=== PATIENT | male | born 1980 | race Hispanic/Latino ===

== ENCOUNTER 2021-03-27 08:47 | Emergency (ER) | payer SELFPAY ==
--- NOTE | 2021-03-27 10:14 | EDPHYS ---
Physician Documentation [facility] Name: Amor Jurado Age: 40 yrs Sex: Male : 1980 Arrival Date: 03/27/2021 Time: 08:51 Bed DIS2 Private MD: ED Physician Zachery De Jesus HPI: 03/27 09:05 This 40 yrs old Male presents to ER via Unassigned with complaints of COVID+, kb Breathing Difficulty. 09:05 The patient or guardian reports cough, difficulty breathing. Onset: The kb symptoms/episode began/occurred last week, and became worse last night. Severity of symptoms: At their worst the symptoms were mild, moderate, in the emergency department the symptoms are unchanged. Modifying factors: The symptoms are alleviated by nothing, the symptoms are aggravated by nothing. Associated signs and symptoms: The patient has no apparent associated signs or symptoms. The patient has not experienced similar symptoms in the past. The patient has been recently seen by a physician:. Patient reports he was diagnosed with Covid last week. Reports shortness of breath got worse last night and continued this morning.. Historical: - Allergies: 09:05 No Known Allergies; ss - Home Meds: 09:05 None [Active]; ss - PMHx: 09:05 None; ss - PSHx: 09:05 None; ss - Immunization history:: Client reports having NOT received the Covid vaccine. - Social history:: Smoking status: Patient denies any tobacco usage or history of. ROS: 09:05 Constitutional: Negative for fever, chills, and weight loss. kb 09:05 Respiratory: Positive for cough, shortness of breath. 09:05 All other systems are negative. Exam: 09:05 Constitutional: This is a well developed, well nourished patient who is awake, alert, kb and in no acute distress. Head/Face: Normocephalic, atraumatic. ENT: Moist Mucous membranes Cardiovascular: Regular rate and rhythm with a normal S1 and S2. No gallops, murmurs, or rubs. No pulse deficits. Respiratory: Respirations even and unlabored. No increased work of breathing, no retractions or nasal flaring. Skin: Warm, dry with normal turgor. Normal color. MS/ Extremity: Pulses equal, no cyanosis. Neurovascular intact. Full, normal range of motion. Neuro: Awake and alert, GCS 15, oriented to person, place, time, and situation. Moves all extremities. Normal gait. Psych: Awake, alert, with orientation to person, place and time. Behavior, mood, and affect are within normal limits. Vital Signs: 09:04 BP 126 / 85; Pulse 105; Resp 22; Temp 97.9(TE); Pulse Ox 98% on R/A; Weight 86.18 kg; ss MDM: 08:53 Patient medically screened. kb 09:06 Data reviewed: vital signs, nurses notes. Data interpreted: Pulse oximetry: on room air kb is 98 %. Interpretation: normal. ED course: Patient's O2 maintained 96 to 98% on room air.. 10:13 Counseling: I had a detailed discussion with the patient and/or guardian regarding: the kb historical points, exam findings, and any diagnostic results supporting the discharge/admit diagnosis, radiology results, the need for outpatient follow up, a family practitioner, to return to the emergency department if symptoms worsen or persist or if there are any questions or concerns that arise at home. 03/27 09:00 Order name: Chest Pa And Lat (2 Views) XRAY; Complete Time: 10:27 kb Administered Medications: 10:34 Drug: SOLU-Medrol (methylPREDNISolone sodium succinate) 125 mg Route: IM; Site: left ss deltoid; 10:45 Follow up: Response: No adverse reaction; Medication administered at discharge. Disposition: 10:46 Co-signature as Attending Physician, Zachery De Jesus MD I agree with the assessment and rn plan of care. Attestation: The patient's history, exam findings, diagnostics, and a summary of any interventions or procedures was reviewed in detail with Gladys MOLINA. Disposition Summary: 03/27/21 10:14 Discharge Ordered Location: Home kb Condition: Stable kb Diagnosis - Coronavirus infection, unspecified kb - Viral pneumonia, unspecified kb Followup: kb - With: Emergency Department - When: As needed - Reason: Worsening of condition Followup: kb - With: Private Physician - When: 2 - 3 days - Reason: Recheck today's complaints, Continuance of care, Re-evaluation by your physician Discharge Instructions: - Discharge Summary Sheet kb - Viral Respiratory Infection, Upec-Iz-Niej kb - COVID-19 kb Forms: - Medication Reconciliation Form kb - Thank You Letter kb - Antibiotic Education kb - Prescription Opioid Use kb Prescriptions: - Prednisone 20 mg Oral Tablet - take 1 tablet by ORAL route once daily for 5 days; 5 tablet; Refills: 0, kb Product Selection Permitted Signatures: Dispatcher [employer] Gladys Ceron, Zachery Duffy MD MD rn Lalita Ryan RN RN ss
--- NOTE | 2021-03-27 10:14 | ER ---
Nurse's Notes [facility] Name: Amor Jurado Age: 40 yrs Sex: Male : 1980 Arrival Date: 03/27/2021 Time: 08:51 Bed DIS2 Private MD: Diagnosis: Coronavirus infection, unspecified;Viral pneumonia, unspecified Presentation: 03/27 09:04 Chief complaint: Patient states: SOB since last night. Tested + for covid last week. ss Coronavirus screen: Client denies travel out of the [place] in the last 14 days. Ebola Screen: Patient denies exposure to infectious person. Patient denies travel to an Ebola-affected area in the 21 days before illness onset. Initial Sepsis Screen: Does the patient meet any 2 criteria? No. Patient's initial sepsis screen is negative. Does the patient have a suspected source of infection? No. Patient's initial sepsis screen is negative. Risk Assessment: Do you want to hurt yourself or someone else? Patient reports no desire to harm self or others. Onset of symptoms was March 26, 2021. 09:04 Method Of Arrival: Ambulatory ss 09:04 Acuity: MOHAMUD 3 ss Historical: - Allergies: 09:05 No Known Allergies; ss - Home Meds: 09:05 None [Active]; ss - PMHx: 09:05 None; ss - PSHx: 09:05 None; ss - Immunization history:: Client reports having NOT received the Covid vaccine. - Social history:: Smoking status: Patient denies any tobacco usage or history of. Vital Signs: 09:04 BP 126 / 85; Pulse 105; Resp 22; Temp 97.9(TE); Pulse Ox 98% on R/A; Weight 86.18 kg; ss ED Course: 08:51 Patient arrived in ED. mr 08:53 Gladys Franklin FNP-C is PHCP. kb 08:53 Zachery De Jesus MD is Attending Physician. kb 09:05 Triage completed. ss 09:05 Arm band placed on right wrist. ss 09:15 Chest Pa And Lat (2 Views) XRAY In Process Unspecified. EDMS 10:17 Lalita Ryan, CONOR is Primary Nurse. ss 10:34 No provider procedures requiring assistance completed. Patient did not have IV access ss during this emergency room visit. Administered Medications: 10:34 Drug: SOLU-Medrol (methylPREDNISolone sodium succinate) 125 mg Route: IM; Site: left ss deltoid; 10:45 Follow up: Response: No adverse reaction; Medication administered at discharge. ss Outcome: 10:14 Discharge ordered by . kb 10:34 Discharged to home ambulatory. ss 10:34 Condition: good 10:34 Discharge instructions given to patient, Instructed on discharge instructions, follow up and referral plans. medication usage, Demonstrated understanding of instructions, follow-up care, Prescriptions given X 1. 10:45 Patient left the ED. ss Signatures: Dispatcher [employer] EDMS Gladys Franklin, [employer]-Loida Morley Shelby, RN RN ss
--- NOTE | 2021-03-27 10:23 | RAD REPORT ---
EXAM DESCRIPTION: RADAmarist Pa And Lat (2 Views)03/27/2021 9:15 am CLINICAL HISTORY: cough COMPARISON: None FINDINGS: Mild bilateral pulmonary opacities are present. The heart is normal size IMPRESSION: Mild bilateral pulmonary opacities probably pneumonia
[2021-03-27] MEDS ORDERED: METHYLPREDNISOLONE 125 MG INJ ONE (10:50)
[2021-03-27 10:52] VITALS: BP 126/85; TEMP 97.9; O2SAT 98
== END 2021-03-27 10:45 | disposition home or self-care (01) ==
LOC: ER 08:47
DX: U07.1 COVID-19 (principal); J12.9 Viral pneumonia, unspecified
CPT/HCPCS: 71046; 96372; 99283; J2930

== ENCOUNTER 2021-03-30 01:17 | Inpatient (IN) | payer SELFPAY ==
[2021-03-30] MEDS ORDERED: METHYLPREDNISOLONE 125 MG INJ ONE (02:09)
[2021-03-30] MEDS ORDERED: NA CHLORIDE 0.9% 1,000 ML ONE (02:09)
[2021-03-30 02:47] LABS: Basophils % 0.2 % (0-1.3); Hematocrit 42.9 % (39.6-49.0); Lymphocytes % 8.2 % (15.3-44.8); MPV 8.2 fL (7.6-11.3); RBC Red Blood Cell Count 5.07 M/uL (4.33-5.43)
[2021-03-30 03:01] LABS: ALT/SGPT 99 U/L (12-78); AST/SGOT 36 U/L (15-37); Albumin 3.2 g/dL (3.4-5.0); Alkaline Phosphatase 94 U/L (45-117); BUN Blood Urea Nitrogen 13 mg/dL (7-18); Bicarbonate 23 mmol/L (21-32); Bilirubin Direct 0.1 mg/dL (0-0.2); Bilirubin Total 0.5 mg/dL (0.2-1.0); Ferritin 1178.6 ng/mL (26-388); Glucose Level 153 mg/dL (74-106); Protein, Total 7.4 g/dL (6.4-8.2); Sodium Level 141 mmol/L (136-145); Troponin (Emerg Dept Use Only) < 0.02 ng/mL (0.0-0.045)
--- NOTE | 2021-03-30 03:17 | ER ---
Nurse's Notes [facility] Name: Amor Jurado Age: 40 yrs Sex: Male : 1980 Arrival Date: 03/30/2021 Time: 01:20 Bed 19 Private MD: Diagnosis: Pneumonia due to SARS-associated coronavirus;Hypoxemia;Fever, unspecified Presentation: 03/30 01:30 Chief complaint: Patient states: was here 2 days ago from the same thing, reports em difficulty breathing and having shortness of breath, had tested covid positive 03/13. Coronavirus screen: Client denies travel out of the [place] in the last 14 days. Ebola Screen: Patient negative for fever greater than or equal to 101.5 degrees Fahrenheit, and additional compatible Ebola Virus Disease symptoms Patient denies exposure to infectious person. Patient denies travel to an Ebola-affected area in the 21 days before illness onset. No symptoms or risks identified at this time. Initial Sepsis Screen: Does the patient meet any 2 criteria? HR > 90 bpm. No. Patient's initial sepsis screen is negative. Does the patient have a suspected source of infection? No. Patient's initial sepsis screen is negative. If YES to both, name of provider notified: Zachery De Jesus MD. Risk Assessment: Do you want to hurt yourself or someone else? Patient reports no desire to harm self or others. Onset of symptoms was March 30, 2021. 01:30 Method Of Arrival: Wheelchair em 01:30 Acuity: MOHAMUD 2 em Triage Assessment: 02:18 General: Appears distressed, uncomfortable, Behavior is. Pain: Complains of pain in sh9 chest Pain currently is 3 out of 10 on a pain scale. 02:23 Respiratory: Reports shortness of breath at rest on exertion Onset: The sh9 symptoms/episode began/occurred yesterday, Historical: - Allergies: 01:31 No Known Allergies; em - PMHx: 01:31 None; em - PSHx: 01:31 None; em - Immunization history:: Client reports having NOT received the Covid vaccine. - Social history:: Smoking status: Patient denies any tobacco usage or history of. - Family history:: not pertinent. - Hospitalizations: : No recent hospitalization is reported. Screenin:22 Abuse screen: Denies threats or abuse. Denies injuries from another. Nutritional sh9 screening: No deficits noted. Tuberculosis screening: No symptoms or risk factors identified. Fall Risk None identified. Assessment: 02:21 Cardiovascular: Rhythm is sinus tachycardia. Respiratory: Reports shortness of breath sh9 at rest on exertion cough that is non-productive, hacking, labored breathing since yesterday pain with cough Airway is patent Respiratory effort is labored, GI: No deficits noted. : No deficits noted. EENT: No deficits noted. Derm: No deficits noted. Musculoskeletal: No deficits noted. Vital Signs: 01:30 BP 120 / 106; Pulse 133; Resp 36; Temp 98.1; Pulse Ox 73% on R/A; em 02:19 BP 118 / 72; Pulse 120; Resp 24; Temp 101.7; Pulse Ox 98% on 5 lpm NC; Pain 3/10; sh9 04:29 BP 118 / 71; Pulse 76; Resp 34; Pulse Ox 100% on 5 lpm NC; sh9 21:31 BP 125 / 77; Pulse 65; Resp 18; Pulse Ox 97% on 15% Non-rebreather mask; sh9 ED Course: 01:20 Patient arrived in ED. bp1 01:31 Triage completed. em 01:31 Arm band placed on. em 01:33 Zachery De Jesus MD is Attending Physician. rn 01:55 CXR XRAY In Process Unspecified. EDMS 02:04 Dede Ramos, CONOR is Primary Nurse. sh9 02:18 Blood Culture Adult (2) Sent. sh9 02:18 C-Reactive Protein Sent. sh9 02:18 CBC with Diff Sent. sh9 02:18 BMP Sent. sh9 02:18 D-Dimer Sent. sh9 02:18 Ferritin Sent. sh9 02:18 LFT's Sent. sh9 02:18 Lactate Sent. sh9 02:18 Procalcitonin Sent. sh9 02:18 Troponin (emerg Dept Use Only) Sent. sh9 02:18 Basic Metabolic Panel Sent. sh9 02:22 Patient has correct armband on for positive identification. Bed in low position. Call sh9 light in reach. Side rails up X 1. 02:22 No provider procedures requiring assistance completed. sh9 03:15 Reji Espinal is Hospitalizing Provider. rn 21:31 Patient admitted, IV remains in place. sh9 Administered Medications: 02:05 Drug: NS 0.9% 1000 ml Route: IV; Rate: 1000 ml; Site: left antecubital; 9 02:05 Drug: SOLU-Medrol (methylPrednisoLONE) 125 mg Route: IVP; Site: left antecubital; 9 04:02 Drug: Calcium Gluconate 1 grams Route: IVPB; Infused Over: 60 mins; Site: left 9 antecubital; 04:03 Drug: Tylenol 1000 mg Route: PO; 9 Outcome: 03:16 Decision to Hospitalize by Provider. rn 21:30 Admitted to Tele accompanied by tech, room 421, with oxygen, with chart, Report called [facility] to nurse David 21:30 Condition: stable 21:44 Patient left the ED. 9 Signatures: Dispatcher [employer] Leeroy Patrick, RN Zachery Roy MD MD rn [place]ia[place], Brittany bp1 Hicks, Skylar, RN RN [facility]
--- NOTE | 2021-03-30 03:17 | EDPHYS ---
Physician Documentation [facility] Name: Amor Jurado Age: 40 yrs Sex: Male : 1980 Arrival Date: 03/30/2021 Time: 01:20 Bed 19 Private MD: ED Physician Zachery De Jesus HPI: 03/30 02:47 This 40 yrs old Male presents to ER via Wheelchair with complaints of Covid rn positive, breathing Difficulty. 02:47 The patient has shortness of breath at rest, with light activity. Onset: The rn symptoms/episode began/occurred yesterday. Duration: The symptoms are continuous. The patient's shortness of breath is aggravated by exertion, light activity, is alleviated by nothing. Associated signs and symptoms: Pertinent positives: non-productive cough, fever, Pertinent negatives: hemoptysis, loss of consciousness. Severity of symptoms: At their worst the symptoms were moderate in the emergency department the symptoms are unchanged. The patient has not experienced similar symptoms in the past. The patient has been recently seen at the [facility] Emergency Department. Patient reports worsening of Covid symptoms, seen here 2 days ago and oxygen was okay, reports shortness of breath that increased yesterday. No chronic medical problems. Reports generalized malaise and fatigue.. Historical: - Allergies: 01:31 No Known Allergies; em - PMHx: :31 None; em - PSHx: :31 None; em - Immunization history:: Client reports having NOT received the Covid vaccine. - Social history:: Smoking status: Patient denies any tobacco usage or history of. - Family history:: not pertinent. - Hospitalizations: : No recent hospitalization is reported. ROS: 02:47 Constitutional: Positive for fever and chills Eyes: Negative for injury, pain, redness, rn and discharge, ENT: Negative for injury, pain, and discharge, Neck: Negative for injury, pain, and swelling, Cardiovascular: Positive for palpitations Respiratory: Positive for cough and shortness of breath Abdomen/GI: Positive for decreased appetite Back: Negative for injury and pain, : Negative for injury, bleeding, discharge, and swelling, MS/Extremity: Negative for injury and deformity, Skin: Negative for injury, rash, and discoloration, Neuro: Positive for generalized weakness 02:47 All other systems are negative. Exam: 02:19 ECG was reviewed by the Attending Physician. rn 02:47 Constitutional: This is a well developed, well nourished patient who is awake, alert, rn shivering Head/Face: Normocephalic, atraumatic. Eyes: Periorbital areas with no swelling, redness, or edema. ENT: Dry mucous membranes, no stridor Cardiovascular: Tachycardic, regular. No pulse deficits Respiratory: Mild to moderate tachypnea, no retractions Abdomen/GI: Soft, nontender Skin: Warm, dry, no cyanosis MS/ Extremity: Pulses equal, no cyanosis. Neuro: Awake and alert, GCS 15 Vital Signs: 01:30 BP 120 / 106; Pulse 133; Resp 36; Temp 98.1; Pulse Ox 73% on R/A; em 02:19 BP 118 / 72; Pulse 120; Resp 24; Temp 101.7; Pulse Ox 98% on 5 lpm NC; Pain 3/10; sh9 04:29 BP 118 / 71; Pulse 76; Resp 34; Pulse Ox 100% on 5 lpm NC; sh9 21:31 BP 125 / 77; Pulse 65; Resp 18; Pulse Ox 97% on 15% Non-rebreather mask; sh9 MDM: 01:33 Patient medically screened. rn 03:14 Differential diagnosis: pneumonia, Pneumothorax pulmonary edema, Pulmonary Embolism rn Sepsis Covid. Data reviewed: vital signs, nurses notes, lab test result(s), EKG, radiologic studies, plain films, and as a result, I will admit patient. Data interpreted: residential monitor: rate is 120 beats/min, rhythm is sinus tachycardia, with no ectopy, Interpretation: tachycardia, Pulse oximetry: on room air is 73 %. Interpretation: hypoxia. Plan: O2 by NC applied. Test interpretation: by ED physician or midlevel provider: ECG, plain radiologic studies, Chest x-ray with bilateral pulmonary infiltrates consistent with Covid pneumonia. Counseling: I had a detailed discussion with the patient and/or guardian regarding: the historical points, exam findings, and any diagnostic results supporting the discharge/admit diagnosis, lab results, radiology results, the need for further work-up and treatment in the hospital. Response to treatment: the patient's symptoms have mildly improved after treatment, and as a result, I will admit patient. Admission orders: after a detailed discussion of the patient's condition and case, the admit orders are written by me. 05:19 Antibiotic administration: Not indicated. Immunization status:. rn 03/30 01:36 Order name: BMP rn 03/30 01:36 Order name: Blood Culture Adult (2) rn 03/30 01:36 Order name: C-Reactive Protein; Complete Time: 03:13 03/30 01:36 Order name: CBC with Diff; Complete Time: 03:13 rn 03/30 01:36 Order name: D-Dimer; Complete Time: 03:13 rn 03/30 01:36 Order name: Ferritin; Complete Time: 03:13 03/30 01:36 Order name: LFT's; Complete Time: 03:13 rn 03/30 01:36 Order name: Lactate; Complete Time: 03:13 03/30 01:36 Order name: Procalcitonin; Complete Time: 03:13 03/30 01:36 Order name: Troponin (emerg Dept Use Only); Complete Time: 03:13 03/30 01:36 Order name: CXR XRAY 03/30 01:37 Order name: Basic Metabolic Panel; Complete Time: 03:13 EDWA 03/30 06:57 Order name: Lactate Sepsis 2 HR Follow-up EDWA 03/30 17:55 Order name: Glucose, Ancillary Testing EDWA 03/30 01:36 Order name: EKG; Complete Time: 01:38 03/30 01:36 Order name: Cardiac monitoring; Complete Time: 02:05 03/30 01:36 Order name: Droplet/Contact Precautions; Complete Time: 02:05 03/30 01:36 Order name: EKG - Nurse/Tech; Complete Time: 02:18 03/30 01:36 Order name: IV Start; Complete Time: 02:05 03/30 01:36 Order name: Labs collected and sent; Complete Time: 02:18 03/30 01:36 Order name: O2 Per Protocol; Complete Time: 02:18 03/30 01:36 Order name: O2 Sat Monitoring; Complete Time: 02:18 03/30 03:21 Order name: CONS Physician Consult EDMS EC:19 Rate is 117 beats/min. Rhythm is regular. QRS [place] is Normal. ID interval is normal. rn QRS interval is normal. QT interval is normal. No Q waves. T waves are Normal. No ST changes noted. Clinical impression: Sinus tachycardia. Interpreted by me. Reviewed by me. Administered Medications: 02:05 Drug: NS 0.9% 1000 ml Route: IV; Rate: 1000 ml; Site: left antecubital; 9 02:05 Drug: SOLU-Medrol (methylPrednisoLONE) 125 mg Route: IVP; Site: left antecubital; 9 04:02 Drug: Calcium Gluconate 1 grams Route: IVPB; Infused Over: 60 mins; Site: left sh9 antecubital; 04:03 Drug: Tylenol 1000 mg Route: PO; sh9 Disposition Summary: 03/30/21 03:16 Hospitalization Ordered Hospitalization Status: Inpatient Admission rn Provider: Reji Espinal rn Condition: Stable rn Problem: an ongoing problem rn Symptoms: are unchanged rn Bed/Room Type: Standard rn Location: Telemetry/MedSurg (Inpatient)(03/30/21 19:27) dw Room Assignment: [facility] [place](03/30/21 19:27) Diagnosis - Pneumonia due to SARS-associated coronavirus rn - Hypoxemia rn - Fever, unspecified rn Forms: - Medication Reconciliation Form rn - SBAR form rn Signatures: Dispatcher [employer] Linda Espinal RN RN dw Leeroy Vasquez RN Zachery Roy MD MD rn Lasagna, Tonya RN RN 1 Dede Ramos RN RN sh9 Corrections: (The following items were deleted from the chart) 04:45 03:16 Telemetry/MedSurg (Inpatient) rn tl1 04:45 03:16 rn tl1 19:27 04:45 [facility] ER HOLD tl1 dw 19: 04:45 ERHOLD- tl1 dw
[2021-03-30] MEDS ORDERED: ACETAMINOPHEN 500 MG TAB ONE (04:11)
[2021-03-30] MEDS ORDERED: CALCIUM GLUCONATE 1 GM IVPB 1 GM/50 ML BAG IV ONE (04:12)
--- NOTE | 2021-03-30 04:49 | P.HP ---
Certification for Inpatient Patient admitted to: Inpatient With expected LOS: <2 Midnights Patient will require the following post-hospital care: None Practitioner: I am a practitioner with admitting privileges, knowledge of patient current condition, hospital course, and medical plan of care. Services: Services provided to patient in accordance with Admission requirements found in Title 42 Section 412.3 of the Code of Federal Regulations Patient History Date of Service: 03/30/21 Reason for admission: covid pneumonia History of Present Illness: Mr. Quinteros is a 40 yo M who presents with 5 days of cough and SOB. He was diagnosed with COVID on 03/13. He denies N/V/D. Says he has been able to eat. CXR consistent with covid pneumonia. On presentation, sats were in the 70s on room air, now improved with nasal canula. WBC 12.3. Ddimer 581. Glu 153. Lactate 2.4. Ferritin 1178. AST 99. CRP 135. Received fluids, steroids, and tylenol in the ED. - Past Medical/Surgical History Has patient received pneumonia vaccine in the past: No Diabetic: No Past Medical History: Patient denies medical history Past Surgical History: Patient denies surgical history - Family History Family History: Reviewed- Non-Contributory - Social History Smoking Status: Never smoker Alcohol use: No CD- Drugs: No Caffeine use: No Place of Residence: Home Review of Systems 10-point ROS is otherwise unremarkable General: Fever, Chills, Sweats Respiratory: Cough, Shortness of Breath, SOB with Excertion Physical Examination - Physical Exam General: Alert, In no apparent distress HEENT: Atraumatic, PERRLA, Mucous membr. moist/pink, EOMI, Sclerae nonicteric Neck: Supple, 2+ carotid pulse no bruit, No LAD, Without JVD or thyroid abnormality Respiratory: Normal air movement, Rhonchi/gurgles Cardiovascular: Normal S1 S2, Irregular heart rate/rhythm (tachycardic ) Gastrointestinal: Normal bowel sounds, No tenderness Musculoskeletal: No tenderness Integumentary: No rashes Neurological: Normal gait, Normal speech, Normal strength at 5/5 x4 extr, Normal tone, Normal affect Lymphatics: No axilla or inguinal lymphadenopathy - Studies Laboratory Data (last 24 hrs) 03/30/21 02:02: WBC 12.30 H, Hgb 14.5, Hct 42.9, Plt Count 225 03/30/21 02:02: Sodium 141, Potassium 4.0, BUN 13, Creatinine 1.00, Glucose 153 H, Total Bilirubin 0.5, AST 36, ALT 99 H, Alkaline Phosphatase 94 Assessment and Plan - Problems (Diagnosis) (1) Pneumonia due to COVID-19 virus Current Visit: Yes Status: Acute - Plan pulm consulted, RT consulted sats for home O2, RA sats daily continue IV steroids, covid supplements, ivermectin daily crp, procal, ferritin tylenol PRN for fever DVT ppx Discharge Plan: Home Plan to discharge in: 48 Hours - Advance Directives Does patient have a Living Will: No Does patient have a Durable POA for Healthcare: No - Code Status/Comfort Care Code Status Assessed: Yes (full code ) Critical Care: No Time Spent Managing Pts Care (In Minutes): 70
[2021-03-30] MEDS ORDERED: BENZONATATE 100 MG CAP PO PRN (05:11)
[2021-03-30] MEDS ORDERED: RIVAROXABAN 10 MG TABLET PO SCH (05:11)
[2021-03-30] MEDS ORDERED: IVERMECTIN 3 MG TABLET PO SCH (05:11)
[2021-03-30] MEDS ORDERED: MELATONIN 5 MG TABLET PO PRN (05:11)
[2021-03-30] MEDS ORDERED: ACETAMINOPHEN 500 MG TAB PO PRN (05:11)
[2021-03-30] MEDS ORDERED: MORPHINE 2 MG/ML SYR IV PRN (05:11)
[2021-03-30] MEDS ORDERED: ONDANSETRON 4 MG/2 ML VIAL IV PRN (05:11)
[2021-03-30 06:15] VITALS: BMI 31.6
--- NOTE | 2021-03-30 07:05 | RAD REPORT ---
EXAM DESCRIPTION: RAD - Chest Single View - 03/30/2021 1:55 am CLINICAL HISTORY: COVID +;Dyspnea COMPARISON: Chest Pa And Lat (2 Views) dated 03/27/2021 FINDINGS: Worsened aeration of the lungs bilaterally with decreased lung volumes and increasing mode rate bilateral airspace disease. The heart size is within normal limits.No acute osseous abnormality. No significant pleural effusions or pneumothorax. IMPRESSION: Worsened airspace disease bilaterally now with at least moderate multifocal airspace dis ease.
[2021-03-30] MEDS: INSULIN -REGULAR HUMAN 50 UNIT/0.5 ML ML SQ SCH ×4 (07:30→22:02)
[2021-03-30] MEDS ORDERED: ASPIRIN EC 81 MG TAB PO ONE (08:39)
[2021-03-30] MEDS ORDERED: ASCORBIC ACID 500 MG TABLET ONE (08:39)
[2021-03-30] MEDS ORDERED: THIAMINE HCL 100 MG TABLET ONE (08:39)
[2021-03-30] MEDS ORDERED: VITAMIN D 1000 UNIT TAB ONE (08:40)
[2021-03-30] MEDS ORDERED: ZINC SULFATE 220 MG CAP ONE (08:40)
[2021-03-30] MEDS ORDERED: METHYLPREDNISOLONE 40 MG INJ ONE (08:40)
[2021-03-30] MEDS ORDERED: FAMOTIDINE 20 MG TAB ONE (08:40)
[2021-03-30] MEDS: METHYLPREDNISOLONE 125 MG INJ IV SCH ×2 (09:00→22:03)
[2021-03-30] MEDS: THIAMINE HCL 100 MG TABLET PO SCH (09:00)
[2021-03-30] MEDS: FAMOTIDINE 20 MG TAB PO SCH ×2 (09:00→22:02)
[2021-03-30] MEDS: ASCORBIC ACID 500 MG TABLET PO SCH ×4 (09:00→22:02)
[2021-03-30] MEDS: VITAMIN D 1000 UNIT TAB PO SCH (09:00)
[2021-03-30] MEDS: ASPIRIN EC 81 MG TAB PO SCH (09:00)
[2021-03-30] MEDS: ZINC SULFATE 220 MG CAP PO SCH (09:00)
[2021-03-30] MEDS: IVERMECTIN 3 MG TABLET PO SCH (09:00)
--- NOTE | 2021-03-30 16:46 | P.CNS ---
Date of Consult: 03/30/21 Reason for Consult: Coronavirus pneumonia Chief Complaint: covid pneumonia History of Present Illness: Patient is 40 years of age Azeri-speaking only admitted with coronavirus pneumonia is currently stable Allergies No Known Allergies Allergy (Unverified 03/30/21 05:10) - Past Medical/Surgical History Diabetic: No - Social History Alcohol use: No CD- Drugs: No Caffeine use: No Place of Residence: Home Review of Systems ENT: Nose Discharge Respiratory: Shortness of Breath Physical Examination Temp Pulse Resp BP Pulse Ox 96 H 26 H 126/87 93 03/30/21 16:00 03/30/21 16:00 03/30/21 16:00 03/30/21 16:00 Laboratory Data (last 24 hrs) 03/30/21 02:02: WBC 12.30 H, Hgb 14.5, Hct 42.9, Plt Count 225 03/30/21 02:02: Sodium 141, Potassium 4.0, BUN 13, Creatinine 1.00, Glucose 153 H, Total Bilirubin 0.5, AST 36, ALT 99 H, Alkaline Phosphatase 94 - Problems (1) Pneumonia due to COVID-19 virus Current Visit: Yes Status: Acute Plan: Age 40 admitted with coronavirus pneumonia oxygenation satisfactory labs reviewed possible discharge tomorrow diffuse bilateral changes on chest x-ray
[2021-03-30] MEDS: RIVAROXABAN 20 MG TABLET PO SCH (17:00)
--- NOTE | 2021-03-30 17:56 | P.PN ---
Date of Service: 03/30/21 Patient not tolerating room air with good oxygen saturation at rest. Acute respiratory failure with hypoxia. Pneumonia due to COVID 19. Plan: Continue IV steroid, vitamin supplementation. Home oxygen evaluation in a.m.
[2021-03-30] MEDS ORDERED: INSULIN -REGULAR HUMAN 50 UNIT/0.5 ML ML ONE (18:17)
[2021-03-30] MEDS ORDERED: RIVAROXABAN 20 MG TABLET PO ONE (18:20)
[2021-03-31 07:01] LABS: Basophils % 0.1 % (0-1.3); Hematocrit 40.3 % (39.6-49.0); MPV 8.1 fL (7.6-11.3); RBC Red Blood Cell Count 4.75 M/uL (4.33-5.43)
[2021-03-31 07:20] LABS: ALT/SGPT 70 U/L (12-78); AST/SGOT 17 U/L (15-37); Albumin 2.8 g/dL (3.4-5.0); Alkaline Phosphatase 76 U/L (45-117); BUN Blood Urea Nitrogen 21 mg/dL (7-18); Bicarbonate 26 mmol/L (21-32); Bilirubin Total 0.5 mg/dL (0.2-1.0); Ferritin 1122.2 ng/mL (26-388); Glucose Level 192 mg/dL (74-106); HDL Cholesterol 30 mg/dL (40-60); LDL Cholesterol, Calculated 71 (<130); Magnesium 2.3 mg/dL (1.8-2.4); Phosphorus 4.3 mg/dL (2.5-4.9); Protein, Total 6.6 g/dL (6.4-8.2); Sodium Level 145 mmol/L (136-145)
[2021-03-31] MEDS: INSULIN -REGULAR HUMAN 50 UNIT/0.5 ML ML SQ SCH ×4 (07:30→20:00)
[2021-03-31 08:44] LABS: Blood Morphology Comment NOT SEEN (NOT SEEN); Platelet Estimate ADEQ; White Blood Cell Scan OK (OK)
[2021-03-31] MEDS: ASPIRIN EC 81 MG TAB PO SCH (09:40)
[2021-03-31] MEDS: ZINC SULFATE 220 MG CAP PO SCH (09:40)
[2021-03-31] MEDS: THIAMINE HCL 100 MG TABLET PO SCH (09:41)
[2021-03-31] MEDS: ASCORBIC ACID 500 MG TABLET PO SCH ×4 (09:41→20:19)
[2021-03-31] MEDS: METHYLPREDNISOLONE 125 MG INJ IV SCH ×2 (09:41→20:19)
[2021-03-31] MEDS: FAMOTIDINE 20 MG TAB PO SCH ×2 (09:41→20:18)
[2021-03-31] MEDS: VITAMIN D 1000 UNIT TAB PO SCH (09:41)
[2021-03-31] MEDS ORDERED: D50W 25 GM/50 ML SYRINGE IV PRN (14:46)
[2021-03-31] MEDS ORDERED: GLUCAGON 1 MG/VIAL IM PRN (14:46)
--- NOTE | 2021-03-31 14:48 | P.PN ---
Subjective Date of Service: 03/31/21 Chief Complaint: covid pneumonia Subjective: No new changes Review of Systems 10-point ROS is otherwise unremarkable Physical Examination - Vital Signs Temperature: 98.1 F Blood Pressure: 119/75 Pulse: 76 Respirations: 26 Pulse Ox (%): 91 - Physical Exam General: Alert, In no apparent distress HEENT: Atraumatic, PERRLA, EOMI Neck: Supple, JVD not distended Respiratory: Clear to auscultation bilaterally, Normal air movement Cardiovascular: Regular rate/rhythm, Normal S1 S2 Gastrointestinal: Normal bowel sounds, No tenderness Musculoskeletal: No tenderness Integumentary: No rashes Neurological: Normal speech, Normal tone, Normal affect Lymphatics: No axilla or inguinal lymphadenopathy Assessment & Plan - Problems (Diagnosis) (1) Pneumonia due to COVID-19 virus Current Visit: Yes Status: Acute Plan: Patient is improving. Will consider weaning her off oxygen and possible discharge with home oxygen. This will need social welfare research worker so may not be till Friday. (2) DM2 (diabetes mellitus, type 2) Current Visit: Yes Status: Acute Plan: this is her first time being told she has diabetes. May be latent diabetes uncovered by the steroid. Will start her on metformin, insulin sliding scale and check an a1c Qualifiers: Diabetes mellitus care home insulin use: without care home use Diabetes mellitus complication status: without complication Qualified Code(s): E11.9 - Type 2 diabetes mellitus without complications Discharge Plan: Home Plan to discharge in: 72 Hours - Code Status/Comfort Care Code Status Assessed: No Physician Review: Patient Assessed, Agree with Above Assessment and Plan Critical Care: No Time Spent Managing Pts Care (In Minutes): 20
[2021-03-31] MEDS ORDERED: INSULIN -REGULAR HUMAN 50 UNIT/0.5 ML ML SQ SCH (16:30)
[2021-03-31] MEDS ORDERED: METFORMIN HCL 500 MG TAB PO SCH (17:00)
[2021-03-31] MEDS: RIVAROXABAN 20 MG TABLET PO SCH (17:20)
[2021-04-01 06:59] LABS: Absolute Lymphocytes (CBC) 0.9 K/uL (0.7-4.9); Basophils % 0.6 % (0-1.3); Hematocrit 42.4 % (39.6-49.0); Lymphocytes % 7.6 % (15.3-44.8); MPV 8.2 fL (7.6-11.3); RBC Red Blood Cell Count 4.95 M/uL (4.33-5.43)
[2021-04-01 07:33] LABS: BUN Blood Urea Nitrogen 24 mg/dL (7-18); Bicarbonate 28 mmol/L (21-32); Ferritin 1241.3 ng/mL (26-388); Glucose Level 225 mg/dL (74-106); Potassium 4.1 mmol/L (3.5-5.1); Sodium Level 144 mmol/L (136-145)
[2021-04-01] MEDS: VITAMIN D 1000 UNIT TAB PO SCH (07:53)
[2021-04-01] MEDS: METHYLPREDNISOLONE 125 MG INJ IV SCH ×2 (07:53→20:08)
[2021-04-01] MEDS: ZINC SULFATE 220 MG CAP PO SCH (07:53)
[2021-04-01] MEDS: ASPIRIN EC 81 MG TAB PO SCH (07:53)
[2021-04-01] MEDS: IVERMECTIN 3 MG TABLET PO SCH (07:53)
[2021-04-01] MEDS: THIAMINE HCL 100 MG TABLET PO SCH (07:54)
[2021-04-01] MEDS: ASCORBIC ACID 500 MG TABLET PO SCH ×4 (07:54→20:07)
[2021-04-01] MEDS: FAMOTIDINE 20 MG TAB PO SCH ×2 (07:57→20:07)
[2021-04-01] MEDS: INSULIN -REGULAR HUMAN 50 UNIT/0.5 ML ML SQ SCH ×4 (07:58→20:08)
--- NOTE | 2021-04-01 11:41 | P.PN ---
Subjective Date of Service: 04/01/21 Chief Complaint: covid pneumonia Subjective: Improving (Improving oxygen requirements declining) Review of Systems General: Weakness Respiratory: Shortness of Breath Physical Examination - Vital Signs Temperature: 97.6 F Blood Pressure: 118/84 Pulse: 71 Respirations: 23 Pulse Ox (%): 91 - Physical Exam General: Alert, Oriented x3, Cooperative Assessment & Plan - Problems (Diagnosis) (1) Pneumonia due to COVID-19 virus Current Visit: Yes Status: Acute Plan: Respiratory failure is improving patient is on 7 L with 92% sat labs reviewed white count is also declining patient will not qualify for Barcitinib discharge in 1 to 2 days Physician Review: Patient Assessed, Agree with Above Assessment and Plan
[2021-04-01] MEDS ORDERED: D50W 25 GM/50 ML SYRINGE IV PRN (12:29)
[2021-04-01] MEDS ORDERED: GLUCAGON 1 MG/VIAL IM PRN (12:29)
--- NOTE | 2021-04-01 12:29 | P.PN ---
Subjective Date of Service: 04/01/21 Chief Complaint: covid pneumonia Subjective: No new changes Review of Systems 10-point ROS is otherwise unremarkable Respiratory: Shortness of Breath Physical Examination - Vital Signs Temperature: 97.6 F Blood Pressure: 118/84 Pulse: 71 Respirations: 23 Pulse Ox (%): 91 - Physical Exam General: Alert, In no apparent distress HEENT: Atraumatic, PERRLA, EOMI Neck: Supple, JVD not distended Respiratory: Clear to auscultation bilaterally, Normal air movement Cardiovascular: Regular rate/rhythm, Normal S1 S2 Gastrointestinal: Normal bowel sounds, No tenderness Musculoskeletal: No tenderness Integumentary: No rashes Neurological: Normal speech, Normal tone, Normal affect Lymphatics: No axilla or inguinal lymphadenopathy Assessment & Plan - Problems (Diagnosis) (1) Pneumonia due to COVID-19 virus Current Visit: Yes Status: Acute Plan: Patient is improving. still on high flow oxygen will continue to monitor the patient. (2) DM2 (diabetes mellitus, type 2) Current Visit: Yes Status: Chronic Plan: will start the patient on metformin and sliding scale. 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
[2021-04-01] MEDS: RIVAROXABAN 20 MG TABLET PO SCH (16:15)
[2021-04-01] MEDS: METFORMIN HCL 500 MG TAB PO SCH (16:15)
[2021-04-02] MEDS: INSULIN -REGULAR HUMAN 50 UNIT/0.5 ML ML SQ SCH ×4 (08:16→19:22)
[2021-04-02] MEDS: ZINC SULFATE 220 MG CAP PO SCH (08:17)
[2021-04-02] MEDS: ASCORBIC ACID 500 MG TABLET PO SCH ×4 (08:17→19:21)
[2021-04-02] MEDS: THIAMINE HCL 100 MG TABLET PO SCH (08:17)
[2021-04-02] MEDS: METHYLPREDNISOLONE 125 MG INJ IV SCH ×2 (08:17→19:22)
[2021-04-02] MEDS: VITAMIN D 1000 UNIT TAB PO SCH (08:17)
[2021-04-02] MEDS: METFORMIN HCL 500 MG TAB PO SCH ×2 (08:17→16:26)
[2021-04-02] MEDS: ASPIRIN EC 81 MG TAB PO SCH (08:17)
[2021-04-02] MEDS: FAMOTIDINE 20 MG TAB PO SCH ×2 (08:17→19:21)
[2021-04-02] MEDS: RIVAROXABAN 20 MG TABLET PO SCH (16:26)
--- NOTE | 2021-04-02 16:55 | P.PN ---
Subjective Date of Service: 04/02/21 Chief Complaint: covid pneumonia Subjective: Other (Currently on 7 L per nasal cannula) Physical Examination - Vital Signs Temperature: 97.9 F Blood Pressure: 128/80 Pulse: 80 Respirations: 22 Pulse Ox (%): 95 Assessment & Plan Discharge Plan: Home Plan to discharge in: 48 Hours Physician Review Additional Text: COVID: Positive Chest x-ray: COMPARISON: Chest Pa And Lat (2 Views) dated 03/27/2021 FINDINGS: Worsened aeration of the lungs bilaterally with decreased lung volumes and increasing moderate bilateral airspace disease. The heart size is w ithin normal limits.No acute osseous abnormality. No significant pleural effusions or pneumothorax. IMPRESSION: Worsened airspace disease bilaterally now with at least moderate multifocal airspace disease. Physical Exam: GENERAL: The patient is a well-developed, well-nourished, in no apparent distress. Alert and oriented x3. VITAL SIGNS: Reviewed HEENT: Neck supple LUNGS: Clear. Currently on 7 L per nasal cannula HEART: Regular rate and rhythm, no appreciable gallops, rubs, murmurs or extra heart sounds ABDOMEN: Soft, nontender, and nondistended. Positive bowel sounds. No hepatosplenomegaly was noted. EXTREMITIES: Without any cyanosis, clubbing, rash, lesions or peripheral edema. NEUROLOGIC: The patient is oriented to person, place and time. Strength and sensation are grossly intact. Face is symmetric. SKIN: Normal color, turgor and temperature. No ulcerations or rashes noted. Impression: Dyspnea secondary to bilateral Covid pneumonia with hypoxia New diabetes mellitus type 2 with hyperglycemia Plan: Continue IV steroids, supplements. Continue to monitor CRP and ferritin. Continue DVT prophylaxisXarelto. Continue with pulmonology recommendations. Encourage proning, incentive spirometer. Continue to wean off oxygen. Maintain sats above 93%. Patient has been started on Metformin. Hemoglobin A1c 6.7. Likely home once oxygen less than 4 L per nasal cannula. Code Status: Full Code DVT prophylaxis: Xarelto Advanced Care Planning-30 minutes: Home at discharge Time Spent Managing Pts Care (In Minutes): 55
--- NOTE | 2021-04-03 06:41 | P.PN ---
Subjective Date of Service: 04/03/21 Chief Complaint: covid pneumonia Subjective: Improving (Patient remains on 4 L. Patient reports significant improvement) Physical Examination - Vital Signs Temperature: 97.9 F Blood Pressure: 121/82 Pulse: 62 Respirations: 19 Pulse Ox (%): 98 Assessment & Plan Discharge Plan: Home Plan to discharge in: 24 Hours Physician Review Additional Text: COVID: Positive Chest x-ray: COMPARISON: Chest Pa And Lat (2 Views) dated 03/27/2021 FINDINGS: Worsened aeration of the lungs bilaterally with decreased lung volumes and increasing moderate bilateral airspace disease. The heart size is within normal limits.No acute osseous abnormality. No significant pleural effusions or pneumothorax. IMPRESSION: Worsened airspace disease bilaterally now with at least moderate multifocal airspace disease. Follow up CXR 04/03/2021: COMPARISON: March 30 FINDINGS: Overall no significant change in the bilateral pulmonary opacities. Heart is mildly enlarged IMPRESSION: No significant change in the bilateral pneumonia Physical Exam: GENERAL: The patient is a well-developed, well-nourished, in no apparent distr ess. Alert and oriented x3. VITAL SIGNS: Reviewed HEENT: Neck supple LUNGS: Clear. 4 L per nasal cannula HEART: Regular rate and rhythm, no appreciable gallops, rubs, murmurs or extra heart sounds ABDOMEN: Soft, nontender, and nondistended. Positive bowel sounds. No hepatosplenomegaly was noted. EXTREMITIES: Without any cyanosis, clubbing, rash, lesions or peripheral edema. NEUROLOGIC: The patient is oriented to person, place and time. Strength and sensation are grossly intact. Face is symmetric. SKIN: Normal color, turgor and temperature. No ulcerations or rashes noted. Impression: Dyspnea secondary to bilateral Covid pneumonia with hypoxia New diabetes mellitus type 2 with hyperglycemia Plan: Patient continues to improve. Patient ambulating with 4 L. Will plan for discharge today. Set up home oxygen. Continue with treatment plan. Patient has been started on Metformin. Hemoglobin A1c 6.7. Home with 4 L per nasal cannula Code Status: Full Code DVT prophylaxis: Xarelto Advanced Care Planning-30 minutes: Home at discharge Time Spent Managing Pts Care (In Minutes): 55
[2021-04-03 07:11] LABS: Absolute Lymphocytes (CBC) 0.9 K/uL (0.7-4.9); Basophils % 0.2 % (0-1.3); Hematocrit 42.4 % (39.6-49.0); Lymphocytes % 8.1 % (15.3-44.8); MPV 8.8 fL (7.6-11.3); RBC Red Blood Cell Count 4.99 M/uL (4.33-5.43)
[2021-04-03 07:21] LABS: ALT/SGPT 87 U/L (12-78); AST/SGOT 26 U/L (15-37); Albumin 2.8 g/dL (3.4-5.0); Alkaline Phosphatase 79 U/L (45-117); BUN Blood Urea Nitrogen 21 mg/dL (7-18); Bicarbonate 25 mmol/L (21-32); Bilirubin Total 0.7 mg/dL (0.2-1.0); Ferritin 819.9 ng/mL (26-388); Glucose Level 244 mg/dL (74-106); Magnesium 2.1 mg/dL (1.8-2.4); Potassium 4.1 mmol/L (3.5-5.1); Protein, Total 6.6 g/dL (6.4-8.2); Sodium Level 140 mmol/L (136-145)
--- NOTE | 2021-04-03 07:35 | RAD REPORT ---
EXAM DESCRIPTION: [facility] Single View04/03/2021 7:10 am CLINICAL HISTORY: Shortness breath COMPARISON: March 30 FINDINGS: Overall no significant change in the bilateral pulmonary opacities. Heart is mildly enlarg ed IMPRESSION: No significant change in the bilateral pneumonia
[2021-04-03] MEDS: ASPIRIN EC 81 MG TAB PO SCH (08:01)
[2021-04-03] MEDS: VITAMIN D 1000 UNIT TAB PO SCH (08:01)
[2021-04-03] MEDS: METFORMIN HCL 500 MG TAB PO SCH (08:02)
[2021-04-03] MEDS: ASCORBIC ACID 500 MG TABLET PO SCH ×2 (08:02→12:49)
[2021-04-03] MEDS: ZINC SULFATE 220 MG CAP PO SCH (08:02)
[2021-04-03] MEDS: THIAMINE HCL 100 MG TABLET PO SCH (08:02)
[2021-04-03] MEDS: INSULIN -REGULAR HUMAN 50 UNIT/0.5 ML ML SQ SCH ×2 (08:02→11:47)
[2021-04-03] MEDS: METHYLPREDNISOLONE 125 MG INJ IV SCH (08:02)
[2021-04-03] MEDS: FAMOTIDINE 20 MG TAB PO SCH (08:02)
[2021-04-03 10:46] VITALS: O2SAT 92
[2021-04-03 12:44] VITALS: BP 121/82; TEMP 97.9
--- NOTE | 2021-04-03 12:49 | P.DS ---
Admission Date: 03/30/21 Discharge Date: 04/03/21 Primary Care Provider: none Disposition: ROUTINE DISCHARGE Discharge Condition: GOOD Reason for Admission: covid pneumonia Consultations: Pulmonary-Dr. Gonzalez Procedures: COVID: Positive Chest x-ray: COMPARISON: Chest Pa And Lat (2 Views) dated 03/27/2021 FINDINGS: Worsened aeration of the lungs bilaterally with decreased lung volumes and increasing moderate bilateral airspace disease. The heart size is within normal limits.No acute osseous abnormality. No significant pleural effusions or pneumothorax. IMPRESSION: Worsened airspace disease bilaterally now with at least moderate multifocal airspace disease. Follow up CXR 04/03/2021: COMPARISON: March 30 FINDINGS: Overall no significant change in the bilateral pulmonary opacities. Heart is mildly enlarged IMPRESSION: No significant change in the bilateral pneumonia Medical Problem List: Dyspnea secondary to bilateral Covid pneumonia with hypoxia New diabetes mellitus type 2 with hyperglycemia Brief History of Present Illness: 40-year-old male presented to the emergency room with increasing shortness of breath. Patient had been tested positive for COVID-19 on March 13. Patient found to be hypoxic. Patient was admitted for treatment. Hospital Course: Patient presented with dyspnea secondary to bilateral Covid pneumonia with hypoxia. Patient was diagnosed with Covid 19 on March 13. Patient required hospitalization. Patient improved during the course of his stay. Patient received IV steroids and supplementation. Patient was seen by pulmonology. As his condition improved patient was able to be weaned down on his oxygen. Patient currently on 4 L per nasal cannula. Prior to discharge home oxygen will be arranged. Maintain sats above 93%. At discharge patient will continue with prednisone 20 mg 1 pill twice daily for 7 days then 1 pill once daily for 7 days. Patient will continue with aspirin 81 mg daily. Patient will also continue with vitamin supplementation including zinc 220 mg daily, vitamin C 500 mg 1 pill 3 times a day, vitamin D 2000 units once daily, thiamine 100 mg 1 pill twice daily, and Pepcid 20 mg 1 pill twice daily. Patient will continue with proning, sleeping on his side, and incentive spirometer use. Recommend to continue COVID-19 isolation for at least 10 days. Patient may need to limit activities during this time. Patient will continue with handwashing, facemask use, social distancing. Patient should follow-up with pulmonology within 1 week to follow-up his hospitalization. Pulmonology will help wean him off oxygen. Patient will also need to establish care with a PCP in the area to continue his care as well. Patient with new diabetes mellitus type 2. Hemoglobin A1c 6.7. Metformin was started. At discharge patient will continue with Metformin 500 mg daily. Recommend to maintain blood sugar less than 140 fasting and less than 200 after meals. If blood sugars remain above 200 the Metformin can be increased to twice daily. Recommend to recheck hemoglobin A1c every 3 months to monitor his progress. Patient will follow up with a PCP to monitor his care. Education on diabetes, Metformin will be provided. Vital Signs/Physical Exam: Temp Pulse Resp BP Pulse Ox 97.9 F 62 19 121/82 98 04/03/21 12:44 04/03/21 12:44 04/03/21 12:44 04/03/21 12:44 04/03/21 12:44 General: Alert, In no apparent distress, Oriented x3, Cooperative HEENT: Atraumatic Neck: Supple Respiratory: Clear to auscultation bilaterally, Other (Currently on 4 L per nasal cannula) Cardiovascular: Normal pulses, Regular rate/rhythm Gastrointestinal: Normal bowel sounds Musculoskeletal: No erythema, No tenderness, No warmth Integumentary: No tenderness/swelling Neurological: Normal speech, Normal strength at 5/5 x4 extr, Normal tone Laboratory Data at Discharge: WBC 11.20 K/uL (4.3-10.9) H 04/03/21 06:06 Hgb 14.1 g/dL (13.6-17.9) 04/03/21 06:06 Hct 42.4 % (39.6-49.0) 04/03/21 06:06 Plt Count 250 K/uL (152-406) 04/03/21 06:06 Sodium 140 mmol/L (136-145) 04/03/21 06:06 Potassium 4.1 mmol/L (3.5-5.1) 04/03/21 06:06 BUN 21 mg/dL (7-18) H 04/03/21 06:06 Creatinine 0.82 mg/dL (0.55-1.3) 04/03/21 06:06 Glucose 244 mg/dL (74-106) H 04/03/21 06:06 Phosphorus 4.3 mg/dL (2.5-4.9) 03/31/21 06:43 Magnesium 2.1 mg/dL (1.8-2.4) 04/03/21 06:06 Total Bilirubin 0.7 mg/dL (0.2-1.0) 04/03/21 06:06 AST 26 U/L (15-37) 04/03/21 06:06 ALT 87 U/L (12-78) H 04/03/21 06:06 Alkaline Phosphatase 79 U/L (45-117) 04/03/21 06:06 Triglycerides 162 mg/dL (<150) H 03/31/21 06:43 Cholesterol 133 mg/dL (<200) 03/31/21 06:43 HDL Cholesterol 30 mg/dL (40-60) L 03/31/21 06:43 Cholesterol/HDL Ratio 4.43 03/31/21 06:43 Home Medications: Ascorbic Acid [Vitamin C*] 500 mg PO TID #90 tablet 04/03/21 Aspirin [Aspirin EC 81 MG] 81 mg PO DAILY #30 tablet. 04/03/21 Cholecalciferol (Vitamin D3) [Vitamin D 1000 Iu Tab*] 2,000 unit PO DAILY #60 tab 04/03/21 Famotidine [Pepcid*] 20 mg PO BID #60 tab 04/03/21 Metformin HCl [Glucophage*] 500 mg PO DAILY #30 tab 04/03/21 Thiamine HCl [Vitamin B-1*] 100 mg PO BID #60 tablet 04/03/21 Zinc Sulfate [Zinc Sulfate*] 220 mg PO DAILY #30 cap 04/03/21 predniSONE [Prednisone*] 20 mg PO SEECOM #21 tab 04/03/21 New Medications: Aspirin [Aspirin EC 81 MG] 81 mg PO DAILY #30 tablet. Metformin HCl [Glucophage*] 500 mg PO DAILY #30 tab Famotidine [Pepcid*] 20 mg PO BID #60 tab predniSONE [Prednisone*] 20 mg PO SEECOM #21 tab Thiamine HCl [Vitamin B-1*] 100 mg PO BID #60 tablet Ascorbic Acid [Vitamin C*] 500 mg PO TID #90 tablet Cholecalciferol (Vitamin D3) [Vitamin D 1000 Iu Tab*] 2,000 unit PO DAILY #60 tab Zinc Sulfate [Zinc Sulfate*] 220 mg PO DAILY #30 cap Physician Discharge Instructions: Patient presented with dyspnea secondary to bilateral Covid pneumonia with hypoxia. Patient was diagnosed with Covid 19 on March 13. Patient required hospitalization. Patient improved during the course of his stay. Patient received IV steroids and supplementation. Patient was seen by pulmonology. As his condition improved patient was able to be weaned down on his oxygen. Patient currently on 4 L per nasal cannula. Prior to discharge home oxygen will be arranged. Maintain sats above 93%. At discharge patient will continue with prednisone 20 mg 1 pill twice daily for 7 days then 1 pill once daily for 7 days. Patient will continue with aspirin 81 mg daily. Patient will also continue with vitamin supplementation including zinc 220 mg daily, vitamin C 500 mg 1 pill 3 times a day, vitamin D 2000 units once daily, thiamine 100 mg 1 pill twice daily, and Pepcid 20 mg 1 pill twice daily. Patient will continue with proning, sleeping on his side, and incentive spirometer use. Recommend to continue COVID-19 isolation for at least 10 days. Patient may need to limit activities during this time. Patient will continue with handwashing, facemask use, social distancing. Patient should follow-up with pulmonology within 1 week to follow-up his hospitalization. Pulmonology will help wean him off oxygen. Patient will also need to establish care with a PCP in the area to continue his care as well. Patient with new diabetes mellitus type 2. Hemoglobin A1c 6.7. Metformin was started. At discharge patient will continue with Metformin 500 mg daily. Recommend to maintain blood sugar less than 140 fasting and less than 200 after meals. If blood sugars remain above 200 the Metformin can be increased to twice daily. Recommend to recheck hemoglobin A1c every 3 months to monitor his progress. Patient will follow up with a PCP to monitor his care. Education on diabetes, Metformin will be provided. Diet: ADA Activity: Ad rafael Followup: Haven Schuster FNP [facility] [ALLIED HEALTH PROFESSIONAL] - 1-2 Weeks Time spent managing pt's care (in minutes): 55
== END 2021-04-03 15:25 | disposition home or self-care (01) | DRG 177 ==
LOC: ER 01:17 → ERHOLD 03:26 → 4TH 21:18
PROVIDERS: ADMIT Internal Medicine; ATTEND Family Medicine
DX: U07.1 COVID-19 (principal); J12.82 Pneumonia due to coronavirus disease 2019; J96.01 Acute respiratory failure with hypoxia; E11.65 Type 2 diabetes mellitus with hyperglycemia
CPT/HCPCS: 36415; 71045; 80048; 80053; 80061; 80076; 82728; 82947; 83036; 83605; 83735; 84100; 84145; 84439; 84443; 84484; 85025; 85379; 86140; 87040; 93005; 94010; 94760; 96374; 96375; 99285; J0610; J2920; J2930; J7030; U0003